=== PATIENT | male | born 2000 | race Caucasian/White ===

== ENCOUNTER 2020-11-20 13:19 | Emergency (ER) | payer OTHER ==
[~2020-11-20] VITALS: Ht 177.8 cm; Wt 79.4 kg
== END 2020-11-20 17:05 | disposition home or self-care (01) ==
LOC: ER 13:19 → EMR PED 13:34
DX: L04.0 Acute lymphadenitis of face, head and neck (principal); J32.8 Other chronic sinusitis; H66.92 Otitis media, unspecified, left ear; Z11.52 Encounter for screening for COVID-19

== ENCOUNTER 2022-04-07 19:12 | Emergency (ER) | payer OTHER ==
[~2022-04-07] VITALS: Ht 177.8 cm; Wt 79.4 kg
[2022-04-07] MEDS ORDERED: AMOX-CLAV 875-1 EAC1 PO (21:42)
== END 2022-04-07 23:28 | disposition home or self-care (01) ==
LOC: ER 19:12
DX: S61.452A Open bite of left hand, initial encounter (principal); W55.01XA Bitten by cat, initial encounter; Y93.9 Activity, unspecified; Y92.018 Other place in single-family (private) house as the place of occurrence of the external cause; Y99.9 Unspecified external cause status

== ENCOUNTER 2024-06-11 07:57 | Emergency (ER) | payer OTHER ==
[~2024-06-11] VITALS: Ht 177.8 cm; Wt 79.4 kg
[~2024-06-11 07:57] MED LIST: AMOX-CLAV 875-1 EAC1 PO
[2024-06-11] MEDS ORDERED: TETANUS & DIPHTHERIA TOX,ADULT 0.5 ML VIAL IM ONE (08:45)
[2024-06-11] MEDS ORDERED: CEFTRIAXONE SODIUM 1,000 MG VIAL IM ONE (08:45)
[2024-06-11] MEDS ORDERED: LIDOCAINE HCL 1% 10ML VIAL PERCUT ONE (08:45)
[2024-06-11] MEDS ORDERED: KETOROLAC TROMETHAMINE 60 MG VIAL IM ONE (08:45)
[2024-06-11] MEDS ORDERED: PEPCID AC20 MG PO (09:27)
[2024-06-11] MEDS ORDERED: CEPHALEXIN750 MG PO (09:27)
== END 2024-06-11 09:53 | disposition home or self-care (01) ==
LOC: ER 07:59
DX: S81.812A Laceration without foreign body, left lower leg, initial encounter (principal); X58.XXXA Exposure to other specified factors, initial encounter; Y93.18 Activity, surfing, windsurfing and boogie boarding; Y92.832 Beach as the place of occurrence of the external cause; Y99.9 Unspecified external cause status

== ENCOUNTER 2024-06-21 10:20 | Emergency (ER) | payer OTHER ==
[~2024-06-21] VITALS: Ht 177.8 cm; Wt 79.4 kg
[~2024-06-21 10:20] MED LIST changes: +CEPHALEXIN750 MG PO; +PEPCID AC20 MG PO
== END 2024-06-21 12:35 | disposition home or self-care (01) ==
LOC: ER 10:22
DX: Z48.02 Encounter for removal of sutures (principal)